=== PATIENT | female | born 1970 | race Caucasian/White ===

== ENCOUNTER 2025-08-29 10:27 | Emergency (ER) | payer SELFPAY ==
[~2025-08-29] VITALS: Ht 154.9 cm; Wt 83.5 kg
[2025-08-29 12:30] LABS: BASOPHILS % 0.1 % (0.0-1.0); EOSINOPHILS % 0.3 % (0.0-6.0); LYMPHOCYTES % 10.1 % (18.0-39.1); MONOCYTES % 6.4 % (4.4-11.3); NEUTROPHILS % 82.0 % (38.7-80.0); RED CELL DISTRIBUTION WIDTH 13.9 % (11.7-14.4)
[2025-08-29 12:34] LABS: INR 0.96
[2025-08-29] MEDS: SODIUM CHLORIDE 0.9% 1000ML 1,000 ML IV STA ×2 (12:37→13:31)
[2025-08-29] MEDS: ONDANSETRON HCL INJ 2MG/ML 2ML 2 MG/ML VIAL IV STA (12:37)
[2025-08-29] MEDS: KETOROLAC TROMETHAMINE 30 MG/ML VIAL IV STA (12:37)
[2025-08-29 12:38] LABS: AMPHETAMINES SCREEN,URINE NEGATIVE (NEGATIVE); CANNABINOIDS SCREEN,URINE NEGATIVE (NEGATIVE); COCAINE SCREEN,URINE NEGATIVE (NEGATIVE); METHADONE SCREEN, URINE NEGATIVE (NEGATIVE); OPIATES SCREEN,URINE NEGATIVE (NEGATIVE)
[2025-08-29 12:41] LABS: EST GLOMERULAR FILTRATION RATE 100.0 ML/MIN (>=60)
[2025-08-29 12:44] LABS: LEUKOCYTE ESTERASE ,URINE TRACE (NEGATIVE); PROTEIN,URINE DIPSTICK 2+ (NEGATIVE); URINE UROBILINOGEN 0.2 mg/dL (0.2 - 1)
[2025-08-29 12:47] LABS: EPITHELIAL CELLS,URINE FEW /LPF; WBC,URINE (MAN) >50 /HPF (0-5)
[2025-08-29] MEDS ORDERED: IOPAMIDOL 370 MG/ML 100 ML INFUS..BTL INJ ONE (12:51)
[2025-08-29] MEDS ORDERED: ACETAMINOPHEN 1000 MG/100 ML 100 ML IV ONE (12:59)
[2025-08-29] MEDS: ACETAMINOPHEN 1000 MG/100 ML IV STA (13:21)
[2025-08-29] MEDS: VANCOMYCIN HCL 1.25 GM in SODIUM CHLORIDE 0.9% 250ML 250 ML IV ONE (13:32)
[2025-08-29 15:30] VITALS: TEMP 98.9
[2025-08-29 18:31] VITALS: PULSE 97; RESP 20; O2SAT 95
== END 2025-08-29 19:00 | disposition other institution (70) ==
LOC: ER 11:55
DX: A41.9 Sepsis, unspecified organism (principal); N13.6 Pyonephrosis; R30.0 Dysuria; R10.24 Suprapubic pain; E11.65 Type 2 diabetes mellitus with hyperglycemia; I10 Essential (primary) hypertension; D64.9 Anemia, unspecified; R94.31 Abnormal electrocardiogram [ECG] [EKG]
CPT/HCPCS: 36415; 71045; 74177; 80053; 80307; 81001; 83605; 83690; 83735; 84484; 85025; 85610; 85730; 87040; 87071; 87086; 87186; 87205; 93005; 99284; J0131; J1885; J2405; J2470; J2543; J7030; J7050; Q9967